=== PATIENT | female | born 1975 | race Two or more races ===

== ENCOUNTER 2017-02-01 05:32 | Inpatient (IN) | payer SELFPAY ==
[~2017-02-01] VITALS: Ht 157.5 cm; Wt 93.0 kg
[2017-02-01] MEDS ORDERED: TERBUTALINE 1 MG/ML VIAL. SQ PRN (05:45)
[2017-02-01] MEDS ORDERED: MAG HYDROX/ALUMINUM HYD/SIMETH 30 ML ORAL.SUSP PO PRN ×2 (05:45→20:15)
[2017-02-01] MEDS ORDERED: BUTORPHANOL 2 MG/ML VIAL. IV PRN (05:45)
[2017-02-01] MEDS ORDERED: OXYTOCIN 30 UNIT/500 ML PREMIX 500 ML IV PRN ×3 (05:45→20:15)
[2017-02-01] MEDS ORDERED: IBUPROFEN 600 MG TABLET. PO PRN (05:45)
[2017-02-01] MEDS ORDERED: CITRIC ACID/SODIUM CITRATE 30 ML SOLUTION. PO PRN (05:45)
[2017-02-01] MEDS ORDERED: LIDOCAINE 1% PF 30 ML VIAL. INJ PRN (05:45)
[2017-02-01] MEDS ORDERED: ONDANSETRON PF 4 MG/2 ML VIAL. IV PRN ×2 (05:45→19:45)
[2017-02-01] MEDS ORDERED: 0.9 % SODIUM CHLORIDE 10 ML DISP.SYRIN. IV PRN ×2 (05:45→20:15)
[2017-02-01] MEDS: IV RINGERS,LACTATED 1000ML 1,000 ML IV SCH ×2 (06:22→11:52)
[2017-02-01 07:44] LABS: HEMATOCRIT 36.8 % (36.0-47.0); HEMOGLOBIN 12.8 g/dL (12.0-15.5); RED BLOOD COUNT 3.97 x10^6/uL (3.50-5.40); RED CELL DISTRIBUTION WIDTH 13.5 % (11.5-14.5); WHITE BLOOD COUNT 7.5 x10^3/uL (4.0-11.0)
[2017-02-01] MEDS ORDERED: PNV1TABL25 PO (08:07)
[2017-02-01 08:10] VITALS: BP 111/67
[2017-02-01 09:28] LABS: BILIRUBIN,URINE NEGATIVE (NEG); GLUCOSE,URINE NEGATIVE (NEG); PH,URINE 7.5
[2017-02-01 09:29] LABS: BACTERIA,URINE MODERATE /HPF (0-FEW); NITRITE,URINE NEGATIVE (NEG); PROTEIN,URINE NEGATIVE (NEG-TRACE); SQUAMOUS EPITHELIAL CELL,UR MANY /LPF; UROBILINOGEN,URINE 0.2 mg/dL (0.2 mg/dL)
[2017-02-01] MEDS: fentaNYL PF VIAL 100 MCG/2 ML VIAL IV PRN ×2 (15:41→17:31)
[2017-02-01] MEDS ORDERED: L&D EPIDURAL CASSETTE 100 ML PUMP.RESVR. EP ONE (19:00)
[2017-02-01] MEDS ORDERED: ROPIVacaine 0.2% IN 0.9%NACL PF 40 MG/20 ML DISP.SYRIN. ONE ×2 (19:00→19:15)
[2017-02-01] MEDS ORDERED: L&D EPIDURAL CASSETTE 100 ML EP ONE (19:15)
[2017-02-01] MEDS ORDERED: IV RINGERS,LACTATED 1000ML 1,000 ML IV PRN (19:45)
[2017-02-01] MEDS ORDERED: NALOXONE 0.4 MG/ML VIAL. IV PRN (19:45)
[2017-02-01] MEDS ORDERED: L&D EPIDURAL CASSETTE 100 ML EP PRN (19:45)
[2017-02-01] MEDS ORDERED: fentaNYL PF VIAL 100 MCG/2 ML VIAL EPI ONE (19:45)
[2017-02-01] MEDS ORDERED: ROPIVacaine 0.2% PF 10 ML VIAL. EPI ONE (19:45)
--- NOTE | 2017-02-01 20:13 | PDOC1 ---
OB - History Hx of Present Care: Good Care Ultrasounds: Normal mid trimester US Obstetrical Complications: Other (previous C/S) Medical Complications: None Past Family/Social History * Past Medical, Surgical, Family and Obstetric Histories reviewed from chart. Blood Type: O+ Rubella: Immune RPR/VDRL: Negative GBS Status: Negative HBsAG: Negative OB - Chief Complaint & HPI Date of Admission: Date of Admission: Feb 01, 2017 at 05:32 Chief Complaint/History : 7 Para: 4 EDC: Feb 02, 2017 Reason for admission: induction of labor Indication for induction: other Admission Nurse Assessment Rev: Yes Problems: OB - Admission Exam Physical Exam Vitals: VS - Last 72 Hours, by Label Date Time Temp Pulse Resp B/P (MAP) Pulse Ox O2 Delivery O2 Flow Rate FiO2 02/01/17 17:31 18 Room Air 02/01/17 15:41 20 Room Air 02/01/17 08:10 97.6 61 20 111/67 (82) 97.6 HEENT: Normal, Nasal Mucosa Normal, Oropharynx Normal, Moist Membranes, Fontanelles Normal Heart: Regular Rate Lungs: Clear, Equal Abdomen: Gravid Extremities: Normal Pulses, No tenderness or swelling Reflexes: Normal Cervical Dilatation: 2cm Effacement: 25% Station: Ballotable Membranes: Intact Amniotic Fluid: Clear Heart Rate: Normal Accelerations: Accelerations Present Decelerations: No decelerations Short Term Variability: Present Intensity: Mild Assessment/Plan Assessment/Plan TIUP VBAV-MARIA INES ACSVD Problems: WHIT MARTINEZ MD Feb 01, 2017 20:13
[2017-02-01] MEDS ORDERED: diphenhydrAMINE HCL 25 MG CAPSULE PO PRN (20:15)
[2017-02-01] MEDS ORDERED: BENZOCAINE 20% TOPICAL AEROSOL SPRAY 57GM CAN. TP PRN (20:15)
[2017-02-01] MEDS ORDERED: MAGNESIUM HYDROXIDE 2,400 MG/30 ML ORAL.SUSP. PO PRN (20:15)
[2017-02-01] MEDS ORDERED: SIMETHICONE 80 MG TAB.CHEW PO PRN (20:15)
[2017-02-01] MEDS ORDERED: ZOLPIDEM 5 MG TABLET. PO PRN (20:15)
[2017-02-01] MEDS ORDERED: ACETAMINOPHEN 325 MG TABLET. PO PRN (20:15)
[2017-02-01] MEDS ORDERED: PHENYLEPH/MINERAL OIL/PETROLAT RECTAL OINTMENT 28GM TUBE. RC PRN (20:15)
[2017-02-01] MEDS ORDERED: HYDROCORTISONE 1% TOPICAL OINTMENT 30GM TUBE. TP PRN (20:15)
[2017-02-01] MEDS: IBUPROFEN 800 MG TABLET. PO SCH (23:34)
[2017-02-01 23:57] VITALS: BP 110/62
[2017-02-02] VITALS (13 sets, daily range): BP systolic 81–108; BP diastolic 44–65
[2017-02-02] MEDS: HYDROcodone/APAP 5/325MG 1 TAB TABLET PO PRN ×3 (03:46→16:37)
[2017-02-02] MEDS ORDERED: IV RINGERS,LACTATED 1000ML 1,000 ML IV SCH (07:54)
[2017-02-02] MEDS ORDERED: MORPHINE SULFATE 2 MG/ML DISP.SYRIN. IV PRN (08:00)
[2017-02-02] MEDS ORDERED: fentaNYL PF VIAL 100 MCG/2 ML VIAL IV PRN (08:00)
[2017-02-02] MEDS ORDERED: LIDOCAINE 1% 1 ML SYRINGE. ID PRN (08:00)
[2017-02-02] MEDS ORDERED: HYDROmorphone 2 MG/ML VIAL IV PRN (08:00)
[2017-02-02] MEDS ORDERED: ONDANSETRON PF 4 MG/2 ML VIAL. IV PRN (08:00)
[2017-02-02] MEDS ORDERED: PROCHLORPERAZINE 10 MG/2 ML VIAL. IV PRN (08:00)
[2017-02-02] MEDS: FERROUS SULFATE 325 MG TABLET. PO SCH ×2 (08:00→17:00)
[2017-02-02] MEDS ORDERED: SUCCINYLCHOLINE 200 MG/10 ML VIAL. ONE (09:00)
[2017-02-02] MEDS ORDERED: MIDAZOLAM HCL/PF 2 MG/2 ML VIAL. ONE (09:00)
[2017-02-02] MEDS ORDERED: PROPOFOL 20 ML IV ONE (09:00)
[2017-02-02] MEDS ORDERED: LIDOCAINE 2% PF Vial for OR 5 ML VIAL. ONE (09:00)
[2017-02-02] MEDS ORDERED: fentaNYL PF VIAL 100 MCG/2 ML VIAL ONE (09:00)
[2017-02-02] MEDS ORDERED: ONDANSETRON PF 4 MG/2 ML VIAL. ONE (09:00)
[2017-02-02] MEDS ORDERED: DEXAMETHASONE SOD PHOS 20 MG/5 ML VIAL. ONE (09:00)
[2017-02-02] MEDS ORDERED: DESFLURANE 61 TO 120 MINUTES IH ONE (09:00)
[2017-02-02] MEDS ORDERED: BUPIVACAINE-EPI 0.5%-1:200000 50 ML VIAL. ONE (09:22)
[2017-02-02] MEDS ORDERED: ROCURONIUM 50 MG/5 ML VIAL. ONE (09:52)
[2017-02-02] MEDS ORDERED: PHENYLEPHRINE in 0.9% NACL PF 1 MG/10 ML DISP.SYRIN. IV ONE (09:54)
[2017-02-02] MEDS ORDERED: NEOSTIGMINE METHYLSULFATE 5 MG/5 ML SYRINGE. ONE (09:55)
[2017-02-02] MEDS ORDERED: GLYCOPYRROLATE 1 MG/5 ML VIAL. ONE (09:55)
[2017-02-02] MEDS ORDERED: KETOROLAC 30 MG/ML INJ FOR OR. INJ ONE (10:03)
[2017-02-02] MEDS ORDERED: ceFAZolin 2GM PREMIX 2 GM/50 ML BAG IV ONE (10:16)
--- NOTE | 2017-02-02 10:36 | PDOC ---
BRIEF OPERATIVE NOTE Pre-Op Diagnosis Multiparous desires permanent sterilization Post-Op Diagnosis Same Procedure Performed PPBTL Surgeon Bob Anesthesia Type: General Blood Loss 10cc Specimens Obtained R and L ova ducts Complications None WHIT MARTINEZ MD Feb 02, 2017 10:36
[2017-02-02] MEDS: fentaNYL PF VIAL 100 MCG/2 ML VIAL IV PRN ×3 (10:40→11:12)
[2017-02-02] MEDS: IBUPROFEN 800 MG TABLET. PO SCH ×2 (14:00→22:00)
[2017-02-03 06:00] VITALS: BP 104/54
[2017-02-03 10:43] VITALS: BP 96/58
[2017-02-03] MEDS: IBUPROFEN 800 MG TABLET. PO SCH (16:52)
[2017-02-03 18:00] VITALS: BP 110/61
--- NOTE | 2017-02-03 18:37 | PDOC ---
OB Progress Note Date of Service 02/03/17 Time of Evaluation 1834 Notes PT. feeling well. Pain controlled. No complaints. Lab Laboratory Tests Test 02/02/17 03:25 Hematocrit 35.6 % (36.0-47.0) Medications Current Medications Sodium Chloride (Normal Saline Flush) 3 ml QSHIFT PRN IV AFTER MEDS AND BLOOD DRAWS; Start 02/01/17 at 05:45 Ringer's Solution 1,000 ml @ 125 mls/hr Q8H IV Last administered on 02/01/17 11:52; Start 02/01/17 at 05:39 Butorphanol Tartrate (Stadol) 2 mg PRN Q1HR PRN IV Severe labor pain; Start at 05:45 Ondansetron HCl (Zofran) 4 mg PRN Q4HRS PRN IV NAUSEA/VOMITING; Start 02/01/17 at 05:45 Al Hydroxide/Mg Hydroxide (Mylanta Plus Xs) 30 ml PRN Q4HRS PRN PO HEARTBURN / GAS; Start 02/01/17 at 05:45 Citric Acid/ Sodium Citrate (Bicitra) 30 ml 1X PRN PRN PO DYSPEPSIA; Start at 05:45; Stop 02/02/17 at 05:44; Status DC Terbutaline Sulfate (Brethine) 0.25 mg 1X PRN PRN SQ SEE COMMENTS; Start at 05:45; Stop 02/02/17 at 05:44; Status DC Lidocaine HCl 30 ml 1X PRN PRN INJ SEE COMMENTS; Start 02/01/17 at 05:45; Stop 02/03/17 at 05:44; Status DC Oxytocin/Sodium Chloride 500 ml @ 0 mls/hr CONT PRN IV SEE I/O RECORD Last administered on 02/01/17 07:54; Start 02/01/17 at 05:45 Oxytocin/Sodium Chloride 500 ml @ 0 mls/hr CONT PRN PRN IV Post delivery bleeding; Start 02/01/17 at 05:45 Ibuprofen (Motrin) 600 mg PRN Q6HRS PRN PO PAIN Last administered on 02/03/17 06:35; Start 02/01/17 at 05:45 Fentanyl Citrate (Fentanyl 2ml Vial) 100 mcg PRN Q1HR PRN IV PAIN Last administered on 7/14/17at 17:31; Start 02/01/17 at 15:45 Ropivacaine/ Fentanyl/NS 100 ml @ As Directed STK-MED ONCE EP ; Start 02/01/17 at 19:15; Stop 02/01/17 at 19:16; Status DC Ropivacaine 40 mg STK-MED ONCE .ROUTE ; Start 02/01/17 at 19:15; Stop 02/01/17 at 19:16; Status DC Ringer's Solution 1,000 ml @ 0 mls/hr Q0M PRN IV SEE I/O RECORD; Start at 19:45 Naloxone HCl (Narcan) 0.04 mg PRN Q1MIN PRN IV SEE COMMENTS; Start 02/01/17 at 19:45 Fentanyl Citrate (Fentanyl 2ml Vial) 100 mcg 1X ONCE EPI ; Start 02/01/17 at 19 :45; Stop 02/01/17 at 19:46; Status DC Ropivacaine/ Fentanyl/NS 100 ml @ 14 mls/hr CONT PRN EP PAIN; Start 02/01/17 at 19:45 Ondansetron HCl (Zofran) 4 mg PRN Q6HRS PRN IV NAUSEA/VOMITING; Start 02/01/17 at 19:45 Ropivacaine (Naropin 0.2%) 20 ml 1X ONCE EPI ; Start 02/01/17 at 19:45; Stop at 19:46; Status DC Sodium Chloride (Normal Saline Flush) 10 ml QSHIFT PRN IV AFTER MEDS AND BLOOD DRAWS; Start 02/01/17 at 20:15 Oxytocin/Sodium Chloride 500 ml @ 62.5 mls/hr CONT PRN IV SEE I/O RECORD; Start 02/01/17 at 20:15; Stop 02/02/17 at 04:14; Status DC Acetaminophen (Tylenol) 650 mg PRN Q6HRS PRN PO MILD PAIN / TEMP; Start at 20:15 Ibuprofen (Motrin) 800 mg Q8HRS PO Last administered on 02/03/17t 16:52; Start 02/01/17 at 22:00 Magnesium Hydroxide (Milk Of Magnesia) 2,400 mg PRN DAILY PRN PO CONSTIPATION; Start 02/01/17 at 20:15 Al Hydroxide/Mg Hydroxide (Mylanta Plus Xs) 30 ml PRN Q4HRS PRN PO HEARTBURN / GAS; Start 02/01/17 at 20:15 Simethicone (Gas-X) 80 mg PRN AFTMEALHC PRN PO GAS / BLOATING; Start 02/01/17 at 20:15 Diphenhydramine HCl (Benadryl) 25 mg PRN Q6HRS PRN PO ITCHING; Start 02/01/17 at 20:15 Benzocaine (Americaine) 1 spray PRN QID PRN TP TOPICAL PAIN; Start 02/01/17 at 20:15 Phenyleph/Shark Oil/Min Oil/Petrol (Preparation H) 1 maria PRN QID PRN RC RECTAL PAIN; Start 02/01/17 at 20:15 Hydrocortisone (Cortaid) 1 maria PRN QID PRN TP RECTAL PAIN; Start 02/01/17 at 20 :15 Ferrous Sulfate (Feosol) 325 mg BIDWMEALS PO ; Start 02/02/17 at 08:00; Stop at 06:49; Status DC Zolpidem Tartrate (Ambien) 5 mg PRN QHS PRN PO INSOMNIA, MAY REPEAT X1; Start 02/01/17 at 20:15 Info (Do NOT chart on this placeholder) 1 ea 1X PRN PRN MC SEE COMMENTS; Start 02/01/17 at 20:15 Acetaminophen/ Hydrocodone Bitart (Lortab 5/325) 1 tab PRN Q4HRS PRN PO PAIN Last administered on 02/02/17t 16:37; Start 02/01/17 at 20:15 Ondansetron HCl (Zofran) 4 mg PRN Q6HRS PRN IV NAUSEA/VOMITING; Start 02/02/17 at 08:00; Stop 02/02/17 at 18:00; Status DC Fentanyl Citrate (Fentanyl 2ml Vial) 25 mcg PRN Q5MIN PRN IV MILD PAIN; Start 02/02/17 at 08:00; Stop 02/02/17 at 18:00; Status DC Fentanyl Citrate (Fentanyl 2ml Vial) 50 mcg PRN Q5MIN PRN IV MODERATE PAIN Last administered on 02/02/17t 11:12; Start 02/02/17 at 08:00; Stop 02/02/17 at 18:00; Status DC Morphine Sulfate 1 mg PRN Q10MIN PRN IV SEVERE PAIN; Start 02/02/17 at 08:00; Stop 02/02/17 at 18:00; Status DC Ringer's Solution 1,000 ml @ 30 mls/hr Q24H IV ; Start 02/02/17 at 07:54; Stop 02/02/17 at 19:53; Status DC Lidocaine HCl 2 ml PRN 1X PRN ID PRIOR TO IV START; Start 02/02/17 at 08:00; Stop 02/02/17 at 18:00; Status DC Hydromorphone HCl (Dilaudid) 0.5 mg PRN Q10MIN PRN IV SEV PAIN, Second choice; Start 02/02/17 at 08:00; Stop 02/02/17 at 18:00; Status DC Prochlorperazine Edisylate (Compazine) 5 mg PACU PRN PRN IV NAUSEA, MRX1; Start 02/02/17 at 08:00; Stop 02/02/17 at 18:00; Status DC Desflurane (Suprane) 60 ml STK-MED ONCE IH ; Start 02/02/17 at 09:00; Stop 02/02 at 09:01; Status DC Fentanyl Citrate (Fentanyl 2ml Vial) 100 mcg STK-MED ONCE .ROUTE ; Start at 09:00; Stop 02/02/17 at 09:01; Status DC Midazolam HCl (Versed) 2 mg STK-MED ONCE .ROUTE ; Start 02/02/17 at 09:00; Stop 02/02/17 at 09:01; Status DC Succinylcholine Chloride (Anectine) 200 mg STK-MED ONCE .ROUTE ; Start 02/02/17 at 09:00; Stop 02/02/17 at 09:01; Status DC Propofol 20 ml @ As Directed STK-MED ONCE IV ; Start 02/02/17 at 09:00; Stop at 09:01; Status DC Lidocaine HCl (Lidocaine Pf 2% Vial) 5 ml STK-MED ONCE .ROUTE ; Start 02/02/17 at 09:00; Stop 02/02/17 at 09:01; Status DC Dexamethasone Sodium Phosphate (Decadron) 20 mg STK-MED ONCE .ROUTE ; Start at 09:00; Stop 7/15/17 at 09:01; Status DC Ondansetron HCl (Zofran) 4 mg STK-MED ONCE .ROUTE ; Start 02/02/17 at 09:00; Stop 02/02/17 at 09:01; Status DC Bupivacaine HCl/ Epinephrine Bitart (Marcaine-Epi 0.5%-1:[id number]) 50 ml STK-MED ONCE .ROUTE Last administered on 02/02/17t 09:47; Start 02/02/17 at 09:22; Stop 02/02/17 at 09:23; Status DC Rocuronium [place] (Zemuron) 50 mg STK-MED ONCE .ROUTE ; Start 02/02/17 at 09:52 ; Stop 02/02/17 at 09:53; Status DC Phenylephrine HCl 1 mg STK-MED ONCE IV ; Start 02/02/17 at 09:54; Stop 02/02/17 at 09:55; Status DC Glycopyrrolate (Robinul) 1 mg STK-MED ONCE .ROUTE ; Start 02/02/17 at 09:55; Stop 02/02/17 at 09:56; Status DC Neostigmine Methylsulfate 5 mg STK-MED ONCE .ROUTE ; Start 02/02/17 at 09:55; Stop 02/02/17 at 09:56; Status DC Ketorolac Tromethamine (Toradol For Or Only) 30 mg STK-MED ONCE INJ ; Start at 10:03; Stop 02/02/17 at 10:04; Status DC Active Scripts Active Reported Tablet (Pnv Cmb#95/Ferrous Fumarate/Fa) 1 Each Tablet 1 Tab PO DAILY Exam Abd:soft, non tender, fundus firm Bandage in place and dry. Assessment PPD#2 s/p POD#1 s/p PP BTL Plan of Care: See new orders (D/c home.) EKTA DIAL Jr, MD Feb 03, 2017 18:36
--- NOTE | 2017-02-03 18:37 | DISCH ---
DISCHARGE INSTRUCTIONS Condition on Discharge Condition on Discharge: Stable Activity After Discharge Activity Instructions for Disc: Activity as tolerated Lifting Instructions after Dis: No heavy lifting Driving Instructions after Dis: Do not drive today Diet after Discharge Diet after Discharge: Regular Contacting the DRLeo after DC Call your doctor for: Concerns you may have Follow-Up Follow up with: Aj in 2 weeks. EKTA DIAL Jr, MD Feb 03, 2017 18:37
[2017-02-03] MEDS ORDERED: OXYC-323 PO (18:38)
[2017-02-03] MEDS ORDERED: NAPR500T PO (18:38)
[2017-02-03 22:12] LABS: RPR REFLEX Non Reactive (Non Reactive)
--- NOTE | 2017-02-04 07:50 | PDOC3 ---
OB DISCHARGE SUMMARY DATE OF ADMISSION: 02/01/17 DATE OF DISCHARGE: 02/04/17 REASON FOR ADMISSION: Onset of labor, TOLAC PROCEDURES: Ultrasound INTRAPARTUM PROCEDURES: Spontanous Vag Deliv PROCEDURES: Tubal Ligation, None OPERATIONS: None DISCHARGE DIAGNOSIS: Term Delivered DISCHARGE INFORMATION: Activity, Diet HOSPITAL COURSE Unremarkable CONDITION AT DISCHARGE Stable WHIT MARTINEZ MD Feb 04, 2017 07:50
--- NOTE | 2017-02-06 12:12 | PATHOLOGY ---
PATHOLOGY REPORT * * * * * * * * FINAL DIAGNOSIS: A. Right tubal ligation: - Segment of fallopian tube confirmed. - Paratubal cyst. B. Left tubal ligation: - Segment of fallopian tube confirmed. (JPM:pit; 02/05/2017) REPORT ELECTRONICALLY SIGNED BY: Rancho Bailey M.D. DATE/TIME: 02/05/2017 13:42 * * * * * * * * GROSS PATHOLOGY: A. Received in formalin labeled "Marie Forbes, right fallopian tube," is a pink-mancini segment of fallopian tube measuring 2.5 x 1.8 x 1.2 cm. There is a large, fluctuant paratubal cyst present. The tissue is submitted representatively in cassette A1. B. Received in formalin labeled "left fallopian tube," are two pink-mancini segments of fallopian tube measuring 1.1 and 1.6 cm in length and 0.5 cm in diameter. The tissue is submitted entirely in cassette B1. (JPM; 02/04/17) INITIAL CPT CODE(S): A; 71782 B; 58916 Professional services performed [place] [facility] [place] [address] Technical services performed by [facility] at [address] [place] [address], [address], [place] [address]. SPECIMEN(S) RECEIVED: A.Right fallopian tube B.Left fallopian tube CLINICAL HISTORY: None Provided PATIENT: MARIE FORBES /AGE: 1005/07/1975 (Age: 41) PATIENT #: [id number] ALT CASE #: SPECIMEN COLLECTION DATE: 02/02/2017 SPECIMEN RECEIVED DATE: 02/04/2017 [facility] - [id number] [place] [address] - PHONE: [phone] * * * END OF REPORT * * *
== END 2017-02-03 19:00 | disposition home or self-care (01) | DRG 767 ==
LOC: EDBD 05:32 → 3 SO LND 05:32
PROVIDERS: ADMIT Specialist; ATTEND Specialist
PROC: 0UB70ZZ Excision of Bilateral Fallopian Tubes, Open Approach (ICD-10-PCS; 2017-02-02)
PROC: 10E0XZZ Delivery of Products of Conception, External Approach (ICD-10-PCS; principal; 2017-02-02 10:00)
DX: O34.219 Maternal care for unspecified type scar from previous cesarean delivery (principal); Z3A.40 40 weeks gestation of pregnancy; Z37.0 Single live birth; Z30.2 Encounter for sterilization
CPT/HCPCS: 36415; 81001; 85014; 85027; 86593; 86850; 86900; 86901; 87086; 88302; C1769; C1887; J0330; J0690; J1100; J1885; J2001; J2250; J2370; J2405; J2590; J2704; J2710; J2795; J3010; J3490; J7120